=== PATIENT | female | born 1975 | race Caucasian/White ===

== ENCOUNTER 2024-11-06 12:30 | Emergency (ER) | payer MEDICAID, SELFPAY ==
[2024-11-06 12:36] VITALS: PULSE 76; RESP 16; O2SAT 99; BMI 29.9
--- NOTE | 2024-11-06 12:36 | EKG_ITS ---
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
[2024-11-06 12:42] VITALS: BP 128/80; PULSE 64; RESP 18; TEMP 36.8; O2SAT 96
--- NOTE | 2024-11-06 13:59 | XR_ITS ---
Examination: CT brain head without contrast. 2-D sagittal coronal reconstructions Date and time of exam:November 06, 2024 1455 hours INDICATIONS: Syncopal episode followed by generalized weakness today COMPARISON: February 17, 2020 CTDI: vol (mGy):49.2 DLP: (mGycm):1035 Technique: Multiple CT axial sections of the brain have been obtained, 5 mm slice thickness. Contrast has not been administered. 2-D sagittal, coronal reconstructions have been obtained Low dose protocols were performed. One or more of the following dose reduction techniques were used; automated exposure control, adjustment of the mA and/or KV according to patient size, use of iterative reconstruction technique. Findings: No significant ventricular enlargement. Intra-axial or extra-axial hemorrhage density is not seen. No mass effect or midline shift Basal cisterns are not remarkable. Fourth ventricle is midline. Cranial vault intact. Impression: Negative for acute hemorrhage, mass effect or midline shift
--- NOTE | 2024-11-06 14:02 | PD.EDDIZZY ---
ED Dizzyness RME/HPI General Chief Complaint: Dizziness Stated Complaint: WEAKNESS, NAUSEA Time Seen by Provider: 11/06/24 12:51 Arrival date/time: 11/06/24 12:30 Limitations: no limitations RME / HPI RME / HPI Narrative: 49 year old female presents to the ED BIBA from work for evaluation of near syncope today. 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 Accompanied by hot flashes, nausea, and feeling clammy. States did not fall or lose consciousness, though while sitting on the chair, felt she was going to go to sleep . Denies any chest pain or shortness of breath. In the ED reports feeling fatigued otherwise no other symptoms reported. Denies any changes to her diet and states she had several pieces of yip and eggs for breakfast. Related Data Home Medications ?Medication ?Instructions ?Recorded ?Confirmed baclofen 20 mg tablet 20 mg PO BID ##60 08/17/16 05/03/20 loratadine 10 mg tablet 10 mg PO QDAY ##30 08/17/16 05/03/20 diazepam 5 mg tablet (Valium) 5 mg PO BID PRN ANXIETY #0 tabs 08/28/16 05/03/20 montelukast 10 mg tablet 10 mg PO QDAY 10/09/19 05/03/20 omeprazole 20 mg capsule,delayed 20 mg PO QDAY 10/09/19 05/03/20 release ondansetron HCl 4 mg tablet 4 mg PO Q6H PRN Abdominal 10/09/19 05/03/20 (Zofran) Discomfort sumatriptan succinate 100 mg tablet 100 mg PO Q2H PRN Acid Reflux 10/09/19 05/03/20 bupropion HCl 150 mg tablet,12 hr 150 mg PO QDAY 02/26/20 05/03/20 sustained-release (Wellbutrin SR) olanzapine 2.5 mg tablet (Zyprexa) 2.5 mg PO QDAY 02/26/20 05/03/20 oxybutynin chloride 5 mg 5 mg PO QDAY 02/26/20 05/03/20 tablet,extended release 24 hr sertraline 25 mg tablet (Zoloft) 25 mg PO QDAY 02/26/20 05/03/20 topiramate 50 mg tablet (Topamax) 50 mg PO BID 02/26/20 05/03/20 Previous Rx's ?Medication ?Instructions ?Recorded ondansetron 4 mg disintegrating 4 mg PO Q8H PRN nausea and 04/22/20 tablet vomiting #20 tabs oxycodone-acetaminophen 5 mg-325 1 tab PO Q8H PRN pain #15 tabs 04/22/20 mg tablet (Percocet) ibuprofen 600 mg tablet 600 mg PO Q8H PRN fever or pain 03/24/21 #30 tabs Allergies Allergy/AdvReac Type Severity Reaction Status Date / Time hydrocodone Allergy Severe VOMITING Verified 03/24/21 09:50 tramadol Allergy Severe Vomiting Verified 03/24/21 09:50 codeine AdvReac Unknown NAUSEA/VOMI Verified 03/24/21 09:50 TING Review of Systems Review of Systems Systems Reviewed: All systems reviewed, normal except as documented Past Medical History Past Medical History NEUROLOGIC: Positive Neurological Disorders RESPIRATORY: Positive Chronic Obstructive Pulmonary Disease (COPD) and Asthma GASTROINTESTINAL: Positive Gastroesophageal Reflux Disease ENT: Positive Ear Infection PSYCHO/SOCIAL: Positive Schizophrenia, Depression and Anxiety Surgical History SURGICAL: Positive Hysterectomy Social History SMOKING STATUS: Current every day smoker ED Exam General Limitations: Present no limitations General appearance: Present alert and in no apparent distress Head Head exam: Present atraumatic, normocephalic and normal inspection Eye Eye exam: Present normal appearance, PERRL and EOMI ENT ENT exam: Present normal exam, normal oropharynx and mucous membranes moist Neck Neck exam: Present normal inspection, full ROM and trachea midline Chest Chest inspection: Present normal inspection and symmetric chest wall rise Respiratory Respiratory exam: Present normal lung sounds bilaterally Cardiovascular Cardiovascular exam: Present regular rate, normal rhythm and normal heart sounds Abdominal Exam Abdominal exam: Present soft and normal bowel sounds Extremities Exam Extremities exam: Present normal inspection and full ROM Back Exam Back exam: Present normal inspection and full ROM Neurological Exam Neurological exam: Present alert, oriented X3 and CN II-XII intact Psychiatric Psychiatric exam: Present normal affect and normal mood Skin Skin exam: Present warm, dry, intact and normal color Course Quality Measures none Orders Category Date Time Status 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 STAT Care 11/06/24 13:58 Active EKG (ED ONLY) *Do not use* NOW Care 11/06/24 12:36 Completed Insert IV STAT Care 11/06/24 13:[address] head/brain wo con Stat Exams 11/06/24 13:59 Completed EKG (ED Only) Stat Exams 11/06/24 12:36 Draft CBC Stat Lab 11/06/24 04:07 Completed Comprehensive Metabolic Panel Stat Lab 11/06/24 04:07 Completed Drug Screen,Urine Stat Lab 11/06/24 14:08 Ordered Prothrombin Time with INR Stat Lab 11/06/24 04:07 Completed Troponin I Stat Lab 11/06/24 04:07 Completed Urinalysis, C/S if Indicated Stat Lab 11/06/24 13:59 Ordered Sodium Chloride 0.9% 1000 ml [Ns] 1,000 ml Med 11/06/24 14:46 Discontinued IV 999 mls/hr Sodium Chloride 0.9% 500 ml [Ns] 500 ml Med 11/06/24 13:58 Discontinued IV 999 mls/hr Vital Signs Vital signs: Vital Signs Temperature 98.2 F 11/06/24 12:42 Pulse Rate 64 11/06/24 12:42 Respiratory Rate 18 11/06/24 12:42 Blood Pressure 128/80 11/06/24 12:42 Pulse Oximetry (%) 96 11/06/24 12:42 Oxygen Delivery Method Room Air 11/06/24 12:42 Pulse ox is 96% on room air which is adequate. Dizziness MDM Narrative MDM Narrative:: Salma Espinoza am scribing for and in the presence of Dr. Faria. Patient data External records reviewed:: [facility] previous records and EMS form Clinical information provided by:: patient and EMS Social determinants that could affect healthcare access:: mental health Patient has the following chronic illnesses:: anxiety, gastritis How is presenting disease/condition affected by chronic disease/condition?: uneffected by Evaluation data The following diagnostics were reviewed and interpreted by me:: lab results, radiology exam(s) and EKG tracing(s) (EKG @ 12:35h NSR, rate 60, no acute ischemic changes, no STEMI. ) Lab and/or radiology exams considered but not ordered:: None Interpretation Summary: Ordering Physician: Franklyn Faria MD Date of Service: 11/06/24 Procedure(s): CT head/brain wo con Accession Number(s): [id number] cc: Franklyn Faria MD; Bruno Scott MD; Carrillo,Meghan INTERIOR DESIGN FACULTY MEMBER~ Examination: CT brain head without contrast. 2-D sagittal coronal reconstructions Date and time of exam:November 06, 2024 1455 hours INDICATIONS: Syncopal episode followed by generalized weakness today COMPARISON: February 17, 2020 CTDI: vol (mGy):49.2 DLP: (mGycm):1035 Technique: Multiple CT axial sections of the brain have been obtained, 5 mm slice thickness. Contrast has not been administered. 2-D sagittal, coronal reconstructions have been obtained Low dose protocols were performed. One or more of the following dose reduction techniques were used; automated exposure control, adjustment of the mA and/or KV according to patient size, use of iterative reconstruction technique. Findings: No significant ventricular enlargement. Intra-axial or extra-axial hemorrhage density is not seen. No mass effect or midline shift Basal cisterns are not remarkable. Fourth ventricle is midline. Cranial vault intact. Impression: Negative for acute hemorrhage, mass effect or midline shift Dictated By: Bruno Scott MD Signed By: <Electronically signed by Bruno Scott MD in OV> 11/06/24 1516 Medications / Prescriptions Medications or Prescriptions considered but not ordered:: None Medication administrations:: Medication Administration History Discontinued Medications Sodium Chloride (Ns) 500 mls @ 999 mls/hr IV .Q31M ONE Stop: 11/06/24 14:28 Last Admin: 11/06/24 14:46 Dose: Not Given Documented By: DIANA Non-Admin Reason: Cancelled by Provider Sodium Chloride (Ns) 1,000 mls @ 999 mls/hr IV .Q1H1M ONE Stop: 11/06/24 15:46 Last Admin: 11/06/24 14:47 Dose: 999 mls/hr Documented By: DIANA See above Consultations Consultation(s) initiated? (list below): No Diagnosis Most likely diagnosis given after review of the tests above:: Near syncope Bradycardia Admission Indicated Admission indicated?: not indicated Admission Request Was there a request for admission?: No Disposition Plan Disposition Plan: Discharge Discharge Attestation Discharge Attestation: The patient and all family members were given an opportunity to ask questions and understood the discharge instructions. Discharge instructions specifically effects, indications for sooner follow up or return to the emergency department, and the expected course of current diagnosis. Patient condition: Stable Discharge Plan Plan Patient Disposition: HOME (Self Care) Prescriptions/Referrals Prescriptions/Med Rec: No Action sertraline [Zoloft] 25 mg tablet 25 mg PO QDAY olanzapine [Zyprexa] 2.5 mg tablet 2.5 mg PO QDAY oxybutynin chloride 5 mg tablet extended release 24hr 5 mg PO QDAY topiramate [Topamax] 50 mg tablet 50 mg PO BID bupropion HCl [Wellbutrin SR] 150 mg tablet sustained-release 12 hr 150 mg PO QDAY baclofen 20 MG tablet 20 mg PO BID Qty: 60 loratadine 10 MG tablet 10 mg PO QDAY Qty: 30 diazepam [Valium] 5 MG tablet 5 mg PO BID PRN (Reason: ANXIETY) Qty: 0 oxycodone-acetaminophen [Percocet] 5-325 mg tablet 1 tab PO Q8H MDD 3 PRN (Reason: pain) Qty: 15 0RF ondansetron 4 mg tablet,disintegrating 4 mg PO Q8H PRN (Reason: nausea and vomiting) Qty: 20 0RF sumatriptan succinate 100 mg Tablet 100 mg PO Q2H PRN (Reason: Acid Reflux) ondansetron HCl [Zofran] 4 mg Tablet 4 mg PO Q6H PRN (Reason: Abdominal Discomfort) omeprazole 20 mg Capsule,Delayed Release(Dr/Ec) 20 mg PO QDAY montelukast 10 mg Tablet 10 mg PO QDAY ibuprofen 600 mg tablet 600 mg PO Q8H PRN (Reason: fever or pain) Qty: 30 0RF Referrals: Meghan Carrillo, INTERIOR DESIGN FACULTY MEMBER [Primary Care Provider] - In 1 week Problem List Clinical Impression: Near syncope, Bradycardia Patient/Caregiver Discharge Instructions Education Materials: ED Fainting, Vagal Reaction Additional Instructions: Follow-up with your primary care doctor tomorrow for holter monitor and referral to lean manufacturing specialist. You can return to the emergency department sooner if symptoms worsen or if you notice any new, concerning issues. Print Language: Maori Stand Alone Forms: Bea Award Info., Work/School Release, Patient Portal Info Letter
[2024-11-06 14:20] LABS: Basophils # (Auto) 0.0 Thou/mm3 (0.0-0.2); Basophils % (Auto) 1 % (0-2.5); Eosinophils # (Auto) 0.2 Thou/mm3 (0.0-0.5); Eosinophils % (Auto) 4 % (0-10); Hematocrit 38.4 % (36.0-46.0); Hemoglobin 12.8 g/dL (12.0-16.0); Immature Granulocytes Auto 0.01 Thou/mm3 (0.00-0.00); Lymphocytes # (Auto) 2.6 Thou/mm3 (1.0-4.8); Lymphocytes % (Auto) 42 % (10-50); Mean Corpuscular HGB Conc 33.3 g/dl (31.0-37.0); Mean Corpuscular Hemoglobin 30.3 pg (25.0-35.0); Mean Corpuscular Volume 91 fL (80-100); Monocytes # (Auto) 0.5 Thou/mm3 (0.0-0.8); Monocytes % (Auto) 8 % (0-12); Neutrophils # (Auto) 2.8 Thou/mm3 (1.8-7.7); Neutrophils % (Auto) 45 % (37-80); Nucleated Red Blood Cell # 0.00 Thou/mm3 (0.00-0.00); Nucleated Red Blood Cell % 0 /100 WBC (0); Platelet Count 265 Thou/mm3 (140-440); RDW Standard Deviation 43.1 fL (36.4-46.3); Red Blood Count 4.23 Miln/mm3 (4.00-5.20); White Blood Count 6.1 Thou/mm3 (3.6-11.0)
[2024-11-06 14:33] VITALS: BP 126/85; PULSE 57; RESP 18; TEMP 36.6; O2SAT 95
[2024-11-06 14:36] LABS: INR 1.0 (0.9-1.3); Prothrombin Time 10.9 Seconds (9.0-12.2)
[2024-11-06 14:44] VITALS: PULSE 51
[2024-11-06 14:45] LABS: Alanine Aminotransferase 20 U/L (10-49); Albumin, Serum 4.0 gm/dL (3.5-5.0); Albumin/Globulin Ratio 1.5 (1.2-2.2); Alkaline Phosphatase 83 U/L (46-116); Anion Gap 8 (7-16); Aspartate Amino Transferase 21 U/L (0-34); BUN/Creatinine Ratio 8 Ratio (12-20); Bilirubin,Total 0.2 mg/dL (0.3-1.2); Blood Urea Nitrogen 9 mg/dL (9-23); Calcium 9.1 mg/dL (8.3-10.6); Calcium (Corrected) 9.1 mg/dL (8.5-10.1); Carbon Dioxide 25.0 mMol/L (20.0-31.0); Chloride 111 mMol/L (98-107); Creatinine (Component) 1.1 mg/dL (0.6-1.3); Estimated Creatinine Clearance 57.8 mL/min (>60); Globulin 2.6 gm/dL (2.3-3.5); Glucose 92 mg/dL (74-106); Osmolality,Calculated 285 (275-295); Potassium 4.3 mMol/L (3.4-5.1); Sodium 144 mMol/L (136-145); Total Protein 6.6 gm/dL (5.7-8.2); Troponin I < 0.002 ng/mL (0.0-0.045); eGFR > 60 See Note
[2024-11-06] MEDS: SODIUM CHLORIDE 0.9% 1000 ML 1,000 ML 999 ML IV (14:47)
[2024-11-06 16:12] LABS: Collection Type, Urine Clean Catch
[2024-11-06 16:16] LABS: Bilirubin,Urine Negative (Negative); Blood,Urine Negative (Negative); Clarity,Urine Turbid (Clear/Hazy); Color,Urine Lt-Yellow (Lt Yel-Yel); Glucose, Urine Negative (Negative); Ketones,Urine Negative (Negative); Leukocyte Esterase,Urine Positive (Negative); Nitrite,Urine Positive (Negative); PH,Urine 6.5 (5.0-7.0); Protein,Urine Negative (Neg - Trace); RBC,Urine 1 /hpf (0-3); Specific Gravity,Urine 1.010 (1.001-1.035); Squamous Epithelial Cell,Urine 6 /hpf (0-5); Urobilinogen,Urine Negative mg/dL (0.0-1.0); WBC,Urine 60 /hpf (0-5)
[2024-11-06 16:18] VITALS: BP 147/78; PULSE 44; RESP 16; TEMP 36.6; O2SAT 100
[2024-11-06 16:34] LABS: Amphetamine/Methamp Scrn,U Negative (Negative); Barbiturate Screen,Urine Negative (Negative); Benzodiazepines Screen,Urine Positive (Negative); Benzoylecgonine Screen, Ur Negative (Negative); Fentanyl Screen,Urine Negative (Negative); Opiate Screen,Urine Negative (Negative); THC Screen,Urine Negative (Negative)
[2024-11-06 17:06] LABS: Culture Indicated,Urine Yes
== END 2024-11-06 16:19 | disposition home or self-care (01) ==
PROVIDERS: Emergency Provider Family Medicine; PCP Nurse Practitioner Family
DX: R00.1 Bradycardia, unspecified (principal); R55 Syncope and collapse; R94.31 Abnormal electrocardiogram [ECG] [EKG]; R42 Dizziness and giddiness
CPT/HCPCS: 36415; 70450; 80053; 80307; 81001; 84484; 85025; 85610; 87077; 87086; 87186; 93005; 96360; 99284; J7030

== ENCOUNTER 2024-11-15 14:26 | Emergency (ER) | payer MEDICAID, SELFPAY ==
[2024-11-15 14:32] VITALS: BP 114/70; PULSE 60; RESP 18; TEMP 36.9; O2SAT 98
[2024-11-15 14:38] VITALS: BMI 29.9
--- NOTE | 2024-11-15 15:25 | PC.NURSE ---
pt did not answer when name was called and was not found outside.
--- NOTE | 2024-11-15 16:08 | PC.NURSE ---
@1525 - PT CALLED FROM ED LOBBY & ED ENTRANCE; NO ANSWER AT THIS TIME. @1559 - PT CALLED FROM ED LOBBY & ED ENTRANCE AGAIN; NO ANSWER AT THIS TIME. @1608 - PT CALLED FROM ED LOBBY & ED ENTRANCE FOR LAST CALL; NO ANSWER AT THIS TIME. PT ELOPED.
== END 2024-11-15 16:09 | disposition left against medical advice (07) ==
LOC: SERX 16:26
PROVIDERS: Emergency Provider Emergency Medicine
DX: Z53.21 Procedure and treatment not carried out due to patient leaving prior to being seen by health care provider (principal)
CPT/HCPCS: 99281